=== PATIENT | male | born 1960 | race Asian ===

== ENCOUNTER 2017-10-09 07:34 | Day surgery (SDC) | payer BC ==
[2017-10-09] MEDS ORDERED: FENTAnyl 50 MCG/ML VIAL (08:36)
[2017-10-09] MEDS ORDERED: MIDAZOLAM 1 MG/ML 2 ML INJ (08:36)
== END 2017-10-09 12:30 | disposition home or self-care (01) ==
LOC: GIL 07:34
DX: Z12.11 Encounter for screening for malignant neoplasm of colon (principal); K64.8 Other hemorrhoids
CPT/HCPCS: 45378